=== PATIENT | female | born 1955 | race Caucasian/White ===

== ENCOUNTER 2020-09-24 15:55 | Emergency (ER) | payer MEDICARE, BC ==
[~2020-09-24] VITALS: Ht 170.2 cm; Wt 77.1 kg
[~2020-09-24 15:55] MED LIST: DULO60CA45 PO
[2020-09-24] MEDS: NEOMY/BACITRA/POLYMYXIN B OINT UD PACKET TP ONE (16:30)
[2020-09-24] MEDS: ACETAMINOPHEN ES 500 MG TABLET PO ONE (16:30)
[2020-09-24] MEDS ORDERED: ACETAMINOPHEN ES 500 MG TABLET ONE (16:33)
[2020-09-24] MEDS ORDERED: NEOMY/BACITRA/POLYMYXIN B OINT UD PACKET TP ONE (16:33)
--- NOTE | 2020-09-24 16:53 | NUR ---
PT DOES NOT REMEMBER THE NAMES OF HOME MEDICATION.
--- NOTE | 2020-09-24 18:51 | NUR ---
Patient discharged to home in stable condition. Written and verbal after care instructions given. Patient verbalizes understanding of instructions. Stressed follow up or return to ER for worsening s/s.pt walks in steady gait, deneis dizziness,n/v.
[2020-09-24 18:52] VITALS: BP 139/77
== END 2020-09-24 18:55 | disposition home or self-care (01) ==
LOC: ER 15:55
DX: S00.83XA Contusion of other part of head, initial encounter (principal); S00.81XA Abrasion of other part of head, initial encounter; S20.211A Contusion of right front wall of thorax, initial encounter; W01.0XXA Fall on same level from slipping, tripping and stumbling without subsequent striking against object, initial encounter; Y92.89 Other specified places as the place of occurrence of the external cause; F32.9 Major depressive disorder, single episode, unspecified; Z79.899 Other long term (current) drug therapy; R03.0 Elevated blood-pressure reading, without diagnosis of hypertension
CPT/HCPCS: 70450; 71101; A4217; A4663; A9150